=== PATIENT | female | born 1965 | race African-American/Black ===

== ENCOUNTER 2024-02-09 13:13 | Emergency (ER) | payer BC ==
[~2024-02-09] VITALS: Ht 167.6 cm; Wt 88.5 kg
[2024-02-09] MEDS ORDERED: NORVASC10 MG PO (13:31)
[2024-02-09] MEDS ORDERED: KETOROLAC TROMETHAMINE 30 MG VIAL IM STA (14:38)
[2024-02-09] MEDS ORDERED: ORPHENADRINE CITRATE 30 MG/ML AMPUL IM STA (14:39)
[2024-02-09] MEDS ORDERED: ORPHENADRINE CITRATE 30 MG/ML AMPUL ONE (15:07)
[2024-02-09] MEDS ORDERED: KETOROLAC TROMETHAMINE 30 MG VIAL ONE (15:07)
[2024-02-09] MEDS ORDERED: BACITRACIN-NEOMYCIN-POLYMYXIN 0.9 GM PACKET TOP ONE (16:49)
[2024-02-09] MEDS ORDERED: CELEBREX200MG PO (16:55)
[2024-02-09] MEDS ORDERED: CEPHALEXIN500 MG PO (16:55)
[2024-02-09] MEDS ORDERED: METAXALONE800 MG PO (16:55)
== END 2024-02-09 17:01 | disposition home or self-care (01) ==
LOC: ER 13:14
DX: M54.50 Low back pain, unspecified (principal); Z91.018 Allergy to other foods; Z91.013 Allergy to seafood; M79.5 Residual foreign body in soft tissue